=== PATIENT | male | born 2005 | race Caucasian/White ===

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

== ENCOUNTER 2024-04-15 12:25 | Emergency (ER) | payer BC, SELFPAY ==
[2024-04-15 12:31] VITALS: BP 115/91; PULSE 67; TEMP 36.7; O2SAT 100; BMI 20.4
--- NOTE | 2024-04-15 13:05 | XR_ITS ---
[facility] [id number] Patient Name: JOCE HYATT MRN: [id number] date: 2005 Sex: M Assigned Patient Location: ER Current Patient Location: ER Accession/Order Number: [id number] Exam Date: 04/15/2024 13:20 Report Date: 04/15/2024 14:06 At the request of: LOKESH LUCAS Procedure: XR wrist AGUS min 3V EXAMINATION: XR wrist AGUS min 3V HISTORY: wrist pain COMPARISON: No relevant comparison available. FINDINGS: RIGHT FINDINGS: BONES: Normal. No significant arthropathy or acute abnormality. SOFT TISSUES: Negative. No visible soft tissue swelling. OTHER: Negative. LEFT FINDINGS: BONES: Normal. No significant arthropathy or acute abnormality. SOFT TISSUES: Negative. No visible soft tissue swelling. OTHER: Negative. XR/XR wrist AGUS min 3V IMPRESSION: RIGHT CONCLUSION: Normal LEFT CONCLUSION: Normal Electronically authenticated by: GIOVANNA COVINGTON Date: 04/15/2024 14:06
--- NOTE | 2024-04-15 14:35 | ED.GENADUL1 ---
HPI HPI - General Adult General Chief complaint: Extremity Injury, Upper Stated complaint: WRIST PAIN Time Seen by Provider: 04/15/24 13:04 Source: patient Mode of arrival: walk-in Limitations: no limitations History of Present Illness HPI narrative: Patient is an 18-year-old male who presents to the emergency department for bilateral wrist pain, left worse than right. He is left-hand dominant. 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 He states today the pain was significant, unrelieved with Tylenol and Motrin. He has not had any swelling, redness or warmth to the joints. No direct injury or falls. Related Data Previous Rx's ?Medication ?Instructions ?Recorded ketorolac 10 mg tablet 10 mg PO TID PRN pain #10 tabs 04/15/24 prednisone 20 mg tablet See Rx Instructions .Route 04/15/24 .COMPLEX #12 tabs Allergies Allergy/AdvReac Type Severity Reaction Status Date / Time amoxicillin Allergy Unknown Verified 08/01/23 15:30 Opioid HPI Opioid Management Most Recent Opioid Data: No Data to Display Review of Systems ROS Constitutional Denies: fever or chills Ears, nose, mouth, and throat Denies: throat pain or nasal congestion Respiratory Denies: shortness of breath Gastrointestinal Denies: nausea or vomiting Musculoskeletal Reports: extremity pain and joint pain; Denies: back pain or neck pain Integumentary/Breast Denies: rash Neurological Denies: headache Hematologic/Lymphatic Denies: easy bruising or easy bleeding Exam Narrative Exam Narrative: Gen.: Awake, alert, in no distress Head: Normocephalic, atraumatic ENT: Moist mucous membranes Respiratory: No respiratory distress Extremities: Right wrist with no significant tenderness, normal range of motion, no bony point tenderness or obvious deformity. Bilateral 2+ radial pulses. Left wrist is diffusely tender over the left distal ulna, no appreciable swelling, ecchymosis or warmth. Limited flexion and extension of the left wrist due to pain Psych: Normal mood and affect Neuro: No focal neuro deficit Skin: Warm, dry, intact Constitutional Vital Signs, click to edit/add: Last Vital Signs Temp 98.0 F 04/15/24 12:31 Pulse 67 04/15/24 12:31 Resp 18 04/15/24 12:31 BP 115/91 04/15/24 12:31 Pulse Ox 100 04/15/24 12:31 O2 Del Method Room Air 04/15/24 12:31 Course Vital Signs Vital signs: Vital Signs Temperature 98.0 F 04/15/24 12:31 Pulse Rate 67 04/15/24 12:31 Respiratory Rate 18 04/15/24 12:31 Blood Pressure 115/91 04/15/24 12:31 Pulse Oximetry 100 04/15/24 12:31 Oxygen Delivery Method Room Air 04/15/24 12:31 Temperature 98.0 F 04/15/24 12:31 Pulse Rate 67 04/15/24 12:31 Respiratory Rate 18 04/15/24 12:31 Blood Pressure 115/91 04/15/24 12:31 Pulse Oximetry 100 04/15/24 12:31 Oxygen Delivery Method Room Air 04/15/24 12:31 Medical Decision Making MDM Narrative Medical decision making narrative: X-rays performed from the lobby with no evidence of bony abnormality. Patient treated for tendinitis with NSAIDs and steroid taper. Bilateral Vlad wrap supplied. Patient is neurovascularly intact discharge. Rest, ice, elevate. Work note provided. Follow-up PCP and return to the ER if symptoms change or worsen Medical Records Medical records reviewed: Yes I reviewed the patient's medical records Imaging Data xr wrist: Attestation: I have reviewed the pertinent imaging results. Radiologist's impression: ITS Impressions Wrist X-Ray 04/15/24 13:05 IMPRESSION: RIGHT CONCLUSION: Normal LEFT CONCLUSION: Normal Electronically authenticated by: GIOVANNA COVINGTON Date: 04/15/2024 14:06 Discharge Plan Discharge Stand Alone Forms: Portal Instructions Chief Complaint: Extremity Injury, Upper Clinical Impression: Tendonitis of both wrists Patient Disposition: Home, Self-Care Time of Disposition Decision: 14:33 Condition: Good Prescriptions / Home Meds: New ketorolac 10 mg tablet 10 mg PO TID PRN (Reason: pain) Qty: 10 0RF prednisone 20 mg tablet See Rx Instructions .ROUTE .COMPLEX Qty: 12 0RF Rx Instructions: 3 tabs daily for 2 days, then 2 tabs daily for 2 days, then 1 tab daily for 2 days Print Language: Divehi Instructions: Tendinitis (ED) Referrals: Physician,Non-Staff, MD [Primary Care Provider] - 1 week
== END 2024-04-15 14:46 | disposition home or self-care (01) ==
PROVIDERS: Emergency Provider Emergency Medicine
DX: M77.8 Other enthesopathies, not elsewhere classified (principal)
CPT/HCPCS: 73110; 99283

== ENCOUNTER 2025-01-22 17:32 | Emergency (ER) | payer SELFPAY ==
[2025-01-22 17:38] VITALS: BP 144/76; PULSE 62; TEMP 36.9; O2SAT 100; BMI 20.2
--- OUTSIDE RECORDS SUMMARY | 2025-01-22 17:46 | XMS_ITS | CCD ---
Author Organization [facility]ini[facility] Care Team Providers Care Train Master Name Role Phone REQUEST, DR NONE LISTED Primary Care Unavaila MY Kim Consulting Unavailable CHRISTIANO RODRIGUEZ Admitting Unavailable CHRISTIANO RODRIGUEZ Attending Unavailable DR LES MURILLO Primary Care Unavailable EMELY PAL Consulting Unavailable EMELY PAL Attending Unavailable EMELY PAL Admitting Unavailable Allergies Allergy Classification Reported Allergen(s) Allergy Type Date of Onset Reaction(s) Facility (1 source) Amoxicillin Drug Allergy 09-28-2020 [facility] Repository Medications Current Medications Medication Drug Class(es) Dates Sig (Normalized) Sig (Original) dextromethorphan hydrobromide 15 mg / guaiFENesin 400 mg / pseudoephedrine hydrochloride 60 mg oral tablet (1 source) alpha-Adrenergic Agonist, Uncompetitive Q-ibsqfs-X-aspartat e Receptor Antagonist, Sigma-1 Agonist Start: 08-22-2024 take 4 tablets by mouth every twenty-four hours Pseudoephedrine -Dm-Guaifenesin (Capmist Dm) 60-15-400 mg tablet Active 1 TAB PO EVERY 4-6 HOURS August 22, 2024 12:00am do not exceed 4 doses per 24 hrs Problems Problem Classification Problem Date Documented Da te Episodic/Chronic Headache; including migraine (4 sources) Headache; including migraine; Translations: [HEADACHE UNSPECIFIED] Onset: 10-05-2021 Mood disorders (1 source) Depressive disorder; Translations: [Depression] 10-16-2023 Chronic Other upper respiratory infections (6 sources) Acute upper respiratory infection, unspecified; Translations: [Acute pharyngitis, unspecified] Onset: 07-26-2021 Episodic Poisoning by other medications and drugs (1 source) Poisoning by unspecified drugs, medicaments and biological substances, accidental (unintentional), initial encounter; Translations: [Drug overdose] 10-16-2023 Episodic Substance-related disorders (1 source) Cannabis abuse; Translations: [Cannabis abuse, uncomplicated] 10-16-2023 Chronic Suicide and intentional self-inflicted injury (1 source) Suicidal thoughts; Translations: [Suicidal ideations] 10-16-2023 Episodic Unclassified (1 source) COUGH, UNSPECIFIED; Translations: [COUGH, UNSPECIFIED] Onset: 10-09-2021 Unclassified (1 source) CONTACT W/AND (SUSP) EXPOS COVID-19; Translations: [CONTACT W/AND (SUSP) EXPOS COVID-19] Onset: 07-28-2021 Viral infection (1 source) COVID-19; Translations: [COVID-19] Onset: 10-09-2021 Results Test Name Value Interpretation Reference Range Facility No Panel InformationOrdered By: Marilyn Zuñiga on 08-22-2024 Quick Strep (POC) [facility] CULTURE THROATon 10-05-2021 CULTURE THROAT Culture Observations: NORMAL RESPIRATORY CRISTIANE. Normal [facility] Comment on above: Performed By: #### S SCRN, THRTCX #### [facility] [address] [place] [address] Dr. Yakov Church Covid-19 PCR (CVDTBH)on SARS-CoV-2 (COVID-19) RNA FEDERICO+probe Ql (Unsp spec) Detected Critically abnormal NOT DETECTED [facility] Comment on above: Result Comment: This test is not yet approved or cleared by the [place] Food and Drug Administration (FDA). This test was developed by [employer], [place], [place]. The performance characteristics of this test were validated by [facility]. The results are not intended to be used as the sole means for clinical diagnosis or patient management decisions. [facility] is authorized under Clinical Laboratory Improvement Amendments (CLIA) to perform high- complexity testing. This test is not yet approved or cleared by the [place] FDA. When there are no FDA-approved or cleared tests available, and other criteria are met, FDA can make tests available under an emergency access mechanism called an Emergency Use Authorization (EUA). The EUA for this test is supported by the Director Of Database Marketing of Health and Human Service's declaration that circumstances exist to justify the emergency use of in vitro diagnostics for the detection and/or diagnosis of the virus that causes COVID-19. This EUA will remain in effect for the duration of the COVID-19 declaration justifying emergency of IVDs, unless it is terminated or revoked by the FDA (after which the test may no longer be used). Performed By: #### C VDTBH #### [facility] [address] [place] [address] Dr. Yakov Church STREPT SCREENon 10-05-2021 STREP SCREEN A Negative Normal NEGATIVE [facility] Comment on above: Performed By: #### S SCRN, THRTCX #### [facility] [address] [place] [address] Dr. Yakov Church CULTURE THROATon 07-26-2021 CULTURE THROAT Culture Observations: NORMAL RESPIRATORY CRISTIANE. Normal [facility] Comment on above: Performed By: #### T HRTCX, SSCRN #### [facility] [address] [place] [address] Dr. Yakov Church [facility] 07[facility]06 SARS-CoV-2 (COVID-19) RNA FEDERICO+probe Ql (Unsp spec) Not detected Normal NOT DETECTED [facility] Comment on above: Result Comment: This test is not yet approved or cleared by the [place] FDA. When there are no FDA-approved or cleared tests available, and other criteria are met, FDA can make tests available under an emergency access mechanism called an Emergency Use Authorization (EUA). The EUA for this test is supported by the Director Of Database Marketing of Health and Human Service's (HHS's) declaration that circumstances exist to justify the emergency use of in vitro diagnostics for the detection and/or diagnosis of the virus that causes COVID-19. This EUA will remain in effect (meaning this test can be used) for the duration of the COVID-19 declaration justifying emergency of IVDs, unless it is terminated or revoked by FDA (after which the test may no longer be used). When diagnostic testing is negative, the possibility of a false negative should be considered in the context of a patient's recent exposures and the presence of clinical signs and symptoms consistent with SARS-CoV-2. Performed By: #### C VDTBH #### [facility] [address] [place] [address] Dr. Yakov Church STREPT SCREENon 07-26-2021 STREP SCREEN A Negative Normal NEGATIVE [facility] Comment on above: Performed By: #### T HRTCX, SSCRN #### [facility] [address] [place] [address] Dr. Yakov Church SYMPTOMATIC COVID-19 ANTIGEN on 07-26-2021 EUA Statement SEE BELOW Normal [facility] Comment on above: Result Comment: This test has not been FDA cleared or approved, but has been authorized by the FDA under an Emergency Use Authorization (EUA) for use by authorized laboratories certified under CLIA that meet the requirements to perform moderate or high complexity testing. This test has been authorized only for the detection of proteins from SARS-CoV-2, not for any other viruses or pathogens. The emergency use of this test is authorized for the duration of the declaration that circumstances exist justifying the authorization of emergency use of in vitro diagnostic tests for detection and/or diagnosis of Covid-19 under section 564(b)(1) of the Act, 21 U.S.C. 360bbb-3(b)(1), unless the declaration is terminated or authorization is revoked sooner. Performed By: #### C VDAGS #### [facility] [address] [place] [address] Dr. Yakov Church SARS-CoV-2 (COVID-19) RNA FEDERICO+probe Ql (Unsp spec) Negative Normal NEGATIVE [facility] Comment on above: Result Comment: CONF IRMATION BY PCR PENDING PER CDC GUIDELINES/ SYMPTOMATIC PATIENT. Performed By: #### C VDAGS #### [facility] [address] [place] [address] Dr. Yakov Church COVID-19 Antigenon 1 COVID-19 Antigen Healthcare Worker?: N Sid Reference -- Sid Reference Negative SARS-CoV+SARS-CoV-2 (COVID-19) Ag [Presence] in Respiratory specimen by Rapid immunoassay Negative for SARS Antigen by SIN COVID19 Blank Space Sid Disclaimer Negative results, from patients with symptom Sid Disclaimer onset beyond five days, should be treated as Sid Disclaimer presumptive and confirmation with a molecular Sid Disclaimer assay, if necessary, for patient management, Sid Disclaimer may be performed. Negative results do not rule Sid Disclaimer out COVID-19 and should not be used as the sole Sid Disclaimer basis for treatment or patient management Sid Disclaimer decisions, including infection control decisions. Sid Disclaimer Negative results should be considered in the Sid Disclaimer context of a patient's recent exposures, history Sid Disclaimer and the presence of clinical signs and symptoms Sid Disclaimer consistent with COVID-19. COVID19 Blank Space Sid Disclaimer The Sid SARS Antigen SIN does not differentiate Sid Disclaimer between SARS-CoV and SARS-CoV-2. COVID19 Blank Space Sid Disclaimer This test was developed and its performance Sid Disclaimer characteristic determined by [employer] and Sid Disclaimer validated at [facility]. This Sid Disclaimer test has not been FDA cleared or approved. This Sid Disclaimer test has been authorized by FDA under an Emergency Use Sid Disclaimer Authorization (EUA). This test has been validated Sid Disclaimer in accordance with the FDA's Guidance Document (Policy Sid Disclaimer for Diagnostics Testing in Laboratories Certified to Sid Disclaimer Perform High Complexity Testing under CLIA prior to Sid Disclaimer Emergency Use Authorization for Coronavirus Sid Disclaimer isease-2019 during the Public Health Emergency) Sid Disclaimer issued on February 04, 2020. This test is only authorized Sid Disclaimer for the duration of time the declaration that Sid Disclaimer circumstances exist justifying the authorization of Sid Disclaimer the emergency use of in vitro diagnostic tests for Sid Disclaimer detection of SARS-CoV-2 virus and/or diagnosis of Sid Disclaimer COVID-19 infection under section 564(b)(1) of the Sid Disclaimer Act, 21 U.S.C. 360bbb-3(b)(1), unless the Sid Disclaimer authorization is terminated or revoked sooner. PERFORMED BY: [place] [address] PATHOLOGIST DROP HAMMER PILE DRIVER OPERATOR ALEKS RAMAN M.D. Normal [facility] Comment on above: Performed By: #### S OFIANEG, COVID-19 SID #### [address] Complete Blood Count Auto Di ffon 02-26-2021 Basophils (Bld) [#/Vol] 0.0 10*3/uL Normal 0.0-0.1 [facility] Comment on above: Result Comment: PERF ORMED BY: [place] [address] PATHOLOGIST DROP HAMMER PILE DRIVER OPERATOR ALEKS RAMAN M.D. Performed By: #### C MP, ETOH, CBC #### [place] [address] [place] Basophils/100 WBC (Bld) 0.6 % Normal . [facility] Comment on above: Performed By: #### C MP, ETOH, CBC #### [facility] [address] [place] [address] [place] Eosinophils (Bld) [#/Vol] 0.0 10*3/uL Normal 0.0-0.7 [facility] Comment on above: Performed By: #### C MP, ETOH, CBC #### [facility] [address] [place] [address] Eosinophils/100 WBC (Bld) 0.4 % Normal . [facility] Comment on above: Performed By: #### C MP, ETOH, CBC #### [facility] [address] Erythrocyte distribution width (RBC) [Ratio] 13.3 % Normal 12.0-14.8 [facility] Comment on above: Performed By: #### C MP, ETOH, CBC #### [address] Hematocrit (Bld) [Volume fraction] 44.9 % Normal 37.0-49.0 [facility] Comment on above: Performed By: #### C MP, ETOH, CBC #### [address] Hemoglobin (Bld) [Mass/Vol] 15.2 g/dL Normal 13.0-16.0 [facility] Comment on above: Performed By: #### C MP, ETOH, CBC #### [address] Lymphocytes (Bld) [#/Vol] 1.5 10*3/uL Normal 1.20-4.8 [facility] Comment on above: Performed By: #### C MP, ETOH, CBC #### [address] Lymphocytes/100 WBC (Bld) 26.9 % Normal . [facility] Comment on above: Performed By: #### C MP, ETOH, CBC #### [address] MCH (RBC) [Entitic mass] 30.5 pg Normal 25.0-35.0 [facility] Comment on above: Performed By: #### C MP, ETOH, CBC #### [address] MCV (RBC) [Entitic vol] 89.7 fL Normal 78-98 [facility] Comment on above: Performed By: #### C MP, ETOH, CBC #### [address] Mean Corpuscular HGB Conc 34.0 g/dL Normal 31.0-37.0 [facility] Comment on above: Performed By: #### C MP, ETOH, CBC #### [facility] [address] [place] [address] [place] Monocytes (Bld) [#/Vol] 0.5 10*3/uL Normal 0.1-1.00 [facility] Comment on above: Performed By: #### C MP, ETOH, CBC #### [facility] [address] [place] [address] [place] Monocytes/100 WBC (Bld) 8.1 % Normal . [facility] Comment on above: Performed By: #### C MP, ETOH, CBC #### [facility] [address] [place] [address] [place] Neutrophils (Bld) [#/Vol] 3.6 10*3/uL Normal 1.2-7.7 [facility] Comment on above: Performed By: #### C MP, ETOH, CBC #### [facility] [address] [place] [address] [place] Neutrophils/100 WBC (Bld) 64.0 % Normal . [facility] Comment on above: Performed By: #### C MP, ETOH, CBC #### [facility] [address] [place] [address] [place] Nucleated RBC/100 WBC (Bld) [Ratio] 0.1 % Normal 0-0.5 [facility] Comment on above: Performed By: #### C MP, ETOH, CBC #### [facility] [address] [place] [address] [place] Platelet mean volume (Bld) [Entitic vol] 7.7 fL Normal 6.6-10.1 [facility] Comment on above: Performed By: #### C MP, ETOH, CBC #### [facility] [address] [place] [address] [place] Platelets (Bld) [#/Vol] 197 10*3/uL Normal 150-450 [facility] Comment on above: Performed By: #### C MP, ETOH, CBC #### [facility] [address] [place] [address] [place] RBC (Bld) [#/Vol] 5.00 10*6/uL Normal 4.50-5.30 [facility] Comment on above: Performed By: #### C MP, ETOH, CBC #### [facility] [address] [place] [address] WBC (Bld) [#/Vol] 5.6 10*3/uL Normal 4.5-13.5 [facility] Comment on above: Performed By: #### C MP, ETOH, CBC #### [address] Comprehensive Metabolic Pane tommie 02-26-2021 Albumin [Mass/Vol] 4.3 g/dL Normal 3.2-5.5 [facility] Comment on above: Performed By: #### C MP, ETOH, CBC #### [address] Albumin/Globulin [Mass ratio] 1.7 {ratio} Normal [facility] Comment on above: Performed By: #### C MP, ETOH, CBC #### [address] ALP [Catalytic activity/Vol] 67 U/L Normal 67-372 [facility] Comment on above: Performed By: #### C MP, ETOH, CBC #### [address] ALT [Catalytic activity/Vol] 16 U/L Normal 10-60 [facility] Comment on above: Performed By: #### C MP, ETOH, CBC #### [address] AST [Catalytic activity/Vol] 19 U/L Normal 10-42 [facility] Comment on above: Performed By: #### C MP, ETOH, CBC #### [facility] [address] [place] [address] Bilirubin [Mass/Vol] 0.7 mg/dL Normal 0.3-1.2 [facility] Comment on above: Performed By: #### C MP, ETOH, CBC #### [facility] [address] [place] [address] [place] Calcium [Mass/Vol] 9.1 mg/dL Normal 8.2-10.2 [facility] Comment on above: Performed By: #### C MP, ETOH, CBC #### [facility] [address] Chloride [Moles/Vol] 107 mmol/L Normal 95-114 [facility] Comment on above: Performed By: #### C MP, ETOH, CBC #### [facility] [address] CO2 [Moles/Vol] 24.9 mmol/L Normal 22.0-30.0 [facility] Comment on above: Performed By: #### C MP, ETOH, CBC #### [address] Creatinine [Mass/Vol] 1.04 mg/dL Normal 0.64-1.27 [facility] Comment on above: Performed By: #### C MP, ETOH, CBC #### [address] Creatinine Clr Calc Pharmacy 99.36 [facility] Comment on above: Result Comment: PERF ORMED BY: [place] [address] PATHOLOGIST DROP HAMMER PILE DRIVER OPERATOR ALEKS RAMAN M.D. Performed By: #### C MP, ETOH, CBC #### [address] Globulin (S) [Mass/Vol] 2.6 g/dL Normal [facility] Comment on above: Performed By: #### C MP, ETOH, CBC #### [address] Glucose [Mass/Vol] 98 mg/dL Normal 70-100 [facility] Comment on above: Result Comment: [place] Glucose Reference Range is dependent on time and content of last meal. Glucose of more than 200 mg/dL in a nonstressed, ambulatory subject supports the diagnosis of Diabetes Mellitus. ADA recommended reference range Performed By: #### C MP, ETOH, CBC #### [address] [place] [address] [place] Potassium [Moles/Vol] 3.7 mmol/L Normal 3.5-5.1 [facility] Comment on above: Performed By: #### C MP, ETOH, CBC #### [facility] [address] [place] [address] [place] Protein [Mass/Vol] 6.9 g/dL Normal 6.1-7.9 [facility] Comment on above: Performed By: #### C MP, ETOH, CBC #### [facility] [address] [place] [address] [place] Sodium [Moles/Vol] 140 mmol/L Normal 138-145 [facility] Comment on above: Performed By: #### C MP, ETOH, CBC #### [address] Urea nitrogen [Mass/Vol] 6 mg/dL Low 9- [facility] Comment on above: Performed By: #### C MP, ETOH, CBC #### [place] [address] [place] Dipstick and Microscopicon 0 02-26-2021 Appearance (U) Clear Normal Clear [facility] Comment on above: Order Comment: Name Collection Type:: Clean-Voided Midstream Performed By: #### A DDONUAPLUS, URDS #### [place] [address] [place] Bacteria,Urine None Seen Normal None Seen [facility] Comment on above: Order Comment: Name Collection Type:: Clean-Voided Midstream Performed By: #### A DDONUAPLUS, URDS #### [place] [address] [place] Bilirubin,Urine Negative Normal Negative [facility] Comment on above: Order Comment: Name Collection Type:: Clean-Voided Midstream Performed By: #### A DDONUAPLUS, URDS #### [place] [address] [place] Color (U) Dark Yellow Critically abnormal Yellow [facility] Comment on above: Order Comment: Name Collection Type:: Clean-Voided Midstream Performed By: #### A DDONUAPLUS, URDS #### [facility] [address] Glucose Ql (U) Normal Normal Normal [facility] Comment on above: Order Comment: Name Collection Type:: Clean-Voided Midstream Performed By: #### A DDONUAPLUS, URDS #### [facility] [address] [place] [address] [place] Hyaline Casts,Urine 0-8 Normal 0-8 [facility] Comment on above: Order Comment: Name Collection Type:: Clean-Voided Midstream Result Comment: PERF ORMED BY: [place] [address] PATHOLOGIST DR[employer] HAMMER PILE DRIVER OPERATOR ALEKS RAMAN M.D. Performed By: #### A DDONUAPLUS, URDS #### [facility] [address] [place] [address] Ketones Ql (U) Trace High Negative [facility] Comment on above: Order Comment: Name Collection Type:: Clean-Voided Midstream Performed By: #### A DDONUAPLUS, URDS #### [facility] [address] [place] [address] Leukocyte esterase Test strip Ql (U) Negative Normal Negative [facility] Comment on above: Order Comment: Name Collection Type:: Clean-Voided Midstream Performed By: #### A DDONUAPLUS, URDS #### [facility] [address] [place] [address] [place] Nitrite,Urine Negative Normal Negative [facility] Comment on above: Order Comment: Name Collection Type:: Clean-Voided Midstream Performed By: #### A DDONUAPLUS, URDS #### [facility] [address] [place] [address] Occult Blood,Urine Negative Normal Negative [facility] Comment on above: Order Comment: Name Collection Type:: Clean-Voided Midstream Result Comment: PERF ORMED BY: [place] [address] PATHOLOGIST DROP HAMMER PILE DRIVER OPERATOR ALEKS RAMAN M.D. Performed By: #### A DDONUAPLUS, URDS #### [facility] [address] [place] [address] pH (U) 6.5 [pH] Normal 5.0-9.0 [facility] Comment on above: Order Comment: Name Collection Type:: Clean-Voided Midstream Performed By: #### A DDONUAPLUS, URDS #### [facility] [address] [place] [address] [place] Protein,Urine Trace High Negative [facility] Comment on above: Order Comment: Name Collection Type:: Clean-Voided Midstream Performed By: #### A DDONUAPLUS, URDS #### [address] RBC,Urine 5-9 High 0-4 [facility] Comment on above: Order Comment: Name Collection Type:: Clean-Voided Midstream Performed By: #### A DDONUAPLUS, URDS #### [address] [place],Urine 1.036 High 1.001-1.030 [facility] Comment on above: Order Comment: Name Collection Type:: Clean-Voided Midstream Performed By: #### A DDONUAPLUS, URDS #### [address] Squamous Epithelial Cell,Urine 1-2 Normal 0-2 [facility] Comment on above: Order Comment: Name Collection Type:: Clean-Voided Midstream Performed By: #### A DDONUAPLUS, URDS #### [address] Uric Acid Crystals,Urine 1+ Normal [facility] Comment on above: Order Comment: Name Collection Type:: Clean-Voided Midstream Performed By: #### A DDONUAPLUS, URDS #### [address] Urobilinogen,Urine Normal Normal Normal [facility] Comment on above: Order Comment: Name Collection Type:: Clean-Voided Midstream Performed By: #### A DDONUAPLUS, URDS #### [facility] [address] [place] [address] WBC,Urine 1-2 Normal 0-4 [facility] Comment on above: Order Comment: Name Collection Type:: Clean-Voided Midstream Performed By: #### A DDONUAPLUS, URDS #### [place] [address] [place] Drug Screen,Urineon 02-27-20 21 Amphetamine Screen,Urine Negative Normal Negative [facility] Comment on above: Performed By: #### A DDONUAPLUS, URDS #### [place] [address] [place] Barbiturate Screen,Urine Negative Normal Negative [facility] Comment on above: Performed By: #### A DDONUAPLUS, URDS #### [place] [address] [place] Benzodiazepines Screen,Urine Negative Normal Negative [facility] Comment on above: Performed By: #### A DDONUAPLUS, URDS #### [address] Cannabinoid Screen,Urine Positive High Negative [facility] Comment on above: Result Comment: Thes e are unconfirmed results and should not be used for legal purposes. Drug Cut-Off Concentration: AMPH 1000 ng/mL DANYELLE 200 ng/mL CHARLEY 200 ng/mL COCM 300 ng/mL OP 300 ng/mL PCP 25 ng/mL THC 20 ng/mL PERFORMED BY: [place] [address] PATHOLOGIST DROP HAMMER PILE DRIVER OPERATOR ALEKS RAMAN M.D. Performed By: #### A DDONUAPLUS, URDS #### [address] Cocaine Screen,Urine Negative Normal Negative [facility] Comment on above: Performed By: #### A DDONUAPLUS, URDS #### [address] Opiate Screen,Urine Negative Normal Negative [facility] Comment on above: Performed By: #### A DDONUAPLUS, URDS #### [address] Phencyclidine Screen,Urine Negative Normal Negative [facility] Comment on above: Performed By: #### A DDONUAPLUS, URDS #### [address] Ethyl Alcohol Profileon 02-03 Ethanol [Mass/Vol] mg/dL Normal [facility] Comment on above: Performed By: #### C MP, ETOH, CBC #### [address] Percent Ethanol Not performed Normal [facility] Comment on above: Result Comment: PERF ORMED BY: [place] [address] PATHOLOGIST DROP HAMMER PILE DRIVER OPERATOR ALEKS RAMAN M.D. Performed By: #### C MP, ETOH, CBC #### [address] Sid Ag Negativeon 02-27-20 Sid Ag Negative Negative Normal Negative [facility] Comment on above: Result Comment: This is a duplicate Sid SARS Antigen (SIN) result to be used for statistical tracking purpose only. PERFORMED BY: [place] [address] PATHOLOGIST DROP HAMMER PILE DRIVER OPERATOR ALEKS RAMAN M.D. Performed By: #### S OFMANPREET, COVID-19 SID #### [address] Vital Signs Date Time Vital Sign Value Performing Clinician Faci lity 08-22-2024 14:31040 Body height 170.18 cm [facility] 08-22-2024 14:310400 Body mass index (BMI) [Percentile] Per age and sex 21.4 % [facility] 08-22-2024 14:310400 Body mass index (BMI) [Ratio] 20.8 kg/m2 [facility] 08-22-2024 14:310400 Body temperature 99.9 [degF] [facility] 08-22-2024 14:31-0400 Body weight 60.32 kg [facility] 08-22-2024 14:31-0400 Diastolic blood pressure 70 mm[Hg] [facility] 08-22-2024 14:31-0400 Heart rate 67 /min [facility] 08-22-2024 14:31-0400 Respiratory rate 18 /min [facility] 08-22-2024 14:31-0400 SaO2% (BldA) [Mass fraction] 98 % [facility] 08-22-2024 14:31-0400 Systolic blood pressure 119 mm[Hg] [facility] Encounters Encounter Date Encounter Type Care Provider Facility Start: 08-22-2024 End: 08-22-2024 ambulatory [facility] Work Phone: Start: 08-22-2024 End: 08-22-2024 Patient encounter procedure [facility] Work Phone: Start: 10-05-2021 End: 10-05-2021 ambulatory NONE LISTED REQUEST Facility:H1 Start: 07-26-2021 End: 07-26-[address] [facility] Facility: Procedures Date Procedure Procedure Detail Performing Clinician Start: 08-22-2024 Quick Strep (POC) Payers Date Payer Category Payer Unknown [id number] 1985 Unknown [id number] 1959 Unknown [id number] Self-pay Self Pay [id number] Unknown [facility] [id number] Social History Date Type Detail Facility Start: 02-27-2021 Tobacco smoking stat us ILIS Never smoked tobacco (finding) [facility] Start: 2005 Sex Assigned At Male F [facility] Evaluation note Note Date & Type Note Facility Evaluation note No assessment information availa pily [facility] Work Phone: Summary Purpose Family History No Family History Records FoundNo Family History Records Found Advance Directives Advance Directive Response Recorded Date/ Time Advance Directives No September 9:16am Chief Complaint and Reason for Visit Chief Complaint Sore throat Additional Source Comments (unrecognized sect ion and content) No Status Records FoundNo Status Records Found INFORMATION SOURCE (unrecogn ized section and content) DATE CREATED AUTHOR 10/09/2021 [facility] DATE CREATED AUTHOR AUTHOR'S ORGANIZ ATION 12/17/2021 [facility] Care Teams (unrecognized sec tion and content) Team Status: Active Member Role Status Dates PHYSICIAN NO FAMILY Primary Care Provider Active Team Status: Inactive Member Role Status Dates PHYSICIAN NO FAMILY Primary Care Provider Active Start: August 22, 2024 End: August 22, 2024 Marilyn Zuñiga APRN Attending Provider Active Start: August 22, 2024 End: August 22, 2024 Goals (unrecognized section and content) Goals may be documented in a n alternate section FOR RECORDS PERTAINING TO PATIENTS WHO ARE OR HAVE BEEN ENROLLED IN A CHEMICAL DEPENDENCY/SUBSTANCEABUSE PROGRAM, SOME INFORMATION MAY BE OMITTED. This clinical summary was aggregated from multiple sources. Caution should be exercised in using it in the provision of clinical care. This summary normalizes information from multiple sources, and as a consequence, information in this document may materially change the coding, format and clinical context of patient data. In addition, data may be omitted in some cases. CLINICAL DECISIONS SHOULD BE BASED ON THE PRIMARY CLINICAL RECORDS. [facility] [employer] provides no warranty or guarantee of the accuracy or completeness of information in this document.
[2025-01-22] MEDS: ONDANSETRON 4 MG RAPDIS TABLET SL (17:47)
[2025-01-22] MEDS: IBUPROFEN 600 MG TABLET PO (17:47)
--- NOTE | 2025-01-22 17:51 | ED.GENADUL1 ---
HPI HPI - General Adult General Chief complaint: Ear Stated complaint: migraine Time Seen by Provider: 01/22/25 17:37 Source: patient Mode of arrival: walk-in Limitations: no limitations History of Present Illness HPI narrative: 19-year-old male presents emergency room chief complaint of right ear pain. 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 He is here for evaluation. He states he wears earplugs daily. Patient denies fevers or chills. Denies worst headache of his life sudden onset or thunderclap sensation. Vital signs are stable. He denies taking any medication prior to coming for his headache. Related Data Previous Rx's ?Medication ?Instructions ?Recorded carbamide peroxide 6.5 % ear drops 5 drp otic (ear) BID 4 days #15 mL 01/22/25 (Ear Wax Removal Drops) Allergies Allergy/AdvReac Type Severity Reaction Status Date / Time amoxicillin Allergy Unknown Verified 08/01/23 15:30 Opioid HPI Opioid Management Most Recent Opioid Data: No Data to Display Review of Systems ROS Narrative All Systems are negative except as noted/marked.All systems reviewed and otherwise negative Exam Narrative Exam Narrative: Nurses note and vital signs reviewed and patient is not hypoxic. General: The patient appears well and in no apparent distress. Patient is resting comfortably on cart. Skin: Warm, dry, no pallor noted. There is no rash noted. Head: Normocephalic, atraumatic Eye: Normal conjunctiva, no drainage, EOMI. PERRL Ears, Nose, Mouth, and Throat: oral mucosa is moist. Nares patent. Mouth without vesicles. Ear canals patent. Tm's without Erythema Cardiovascular: Regular Rate and Rhythm Respiratory: Patient is in no distress, no accessory muscle use, lungs are clear to auscultation, no wheezing, rales or rhonchi Back: non-tender, no CVA tenderness bilaterally to percussion. GI: Normal bowel sounds, no tenderness to palpation, no masses appreciated. No rebound, guarding, or rigidity noted. Musculoskeletal: The patient has no evidence of calf tenderness, no pitting edema, symmetrical pulses noted bilaterally Neurological: A&O x4, normal speech Psychiatric: Cooperative Constitutional Vital Signs, click to edit/add: Last Vital Signs Temp 98.4 F 01/22/25 17:38 Pulse 62 01/22/25 17:38 Resp 18 01/22/25 17:38 BP 144/76 H 01/22/25 17:38 Pulse Ox 100 01/22/25 17:38 O2 Del Method Room Air 01/22/25 17:38 Course Vital Signs Vital signs: Vital Signs Temperature 98.4 F 01/22/25 17:38 Pulse Rate 62 01/22/25 17:38 Respiratory Rate 18 01/22/25 17:38 Blood Pressure 144/76 H 01/22/25 17:38 Pulse Oximetry 100 01/22/25 17:38 Oxygen Delivery Method Room Air 01/22/25 17:38 Temperature 98.4 F 01/22/25 17:38 Pulse Rate 62 01/22/25 17:38 Respiratory Rate 18 01/22/25 17:38 Blood Pressure 144/76 H 01/22/25 17:38 Pulse Oximetry 100 01/22/25 17:38 Oxygen Delivery Method Room Air 01/22/25 17:38 Medical Decision Making [facility] Narrative Medical decision making narrative: 19-year-old male presents emergency room chief complaint of right ear pain. 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 He is here for evaluation. He states he wears earplugs daily. Patient denies fevers or chills. Denies worst headache of his life sudden onset or thunderclap sensation. Vital signs are stable. He denies taking any medication prior to coming for his headache. , Patient has cerumen noted bilaterally. I will write him a prescription for Debrox to help with removing cerumen from his canal. Patient was medicated here with Zofran and Motrin. He is able to be discharged home and follow-up primary care physician. Differential Diagnosis Differential Diagnosis: cerumen Impaction, otitis media, headache Medical Records Medical records reviewed: Yes I reviewed the patient's medical records Discharge Plan Discharge Chief Complaint: Ear Clinical Impression: Cerumen impaction, Headache Patient Disposition: Home, Self-Care Time of Disposition Decision: 17:48 Condition: Good Prescriptions / Home Meds: New Ear Wax Removal Drops 6.5 % drops 5 drp otic (ear) BID 4 Days Qty: 15 0RF Print Language: Austrian Instructions: Carbamide Peroxide (Into the ear), Acute Headache (DC) Referrals: Physician,Non-Staff, MD [Primary Care Provider] - 1 week
== END 2025-01-22 18:00 | disposition home or self-care (01) ==
PROVIDERS: Emergency Provider Emergency Medicine
DX: H61.23 Impacted cerumen, bilateral (principal); R51.9 Headache, unspecified
CPT/HCPCS: 99283; Q0162

== ENCOUNTER 2025-04-13 11:19 | Emergency (ER) | payer SELFPAY ==
--- OUTSIDE RECORDS SUMMARY | 2023-08-16 10:12 | XMS_ITS | Continuity of Care Document ---
Author Organization [facility] Address [address] [place] [address] Phone Care Team Providers Care Business Development Associate Name Role Phone Viscyuri AVILES DO, [place] Unavailable Unavailable Allergies, Adverse Reactions, Alerts Substance Reaction Status Criticality amoxicillin rash Active No Information Problems Condition Type Effective Dates (start - stop) Clini coty Status Comments No Known Problems Procedures Procedure Date Imm Admin Through 18 Yrs Of Age 018 HEP A VACC, PED/ADOL, 2 DOSE Imm Admin Through 18 Yrs Of Age 018 HPV 9 Valent Imm Admin Through 18 Yrs Of Age 018 Meningococcal Conjugate Vaccine 018 Imm Admin Through 18 Yrs Of Age 018 TDAP VACCINE >7 IM NEW OFFICE VISIT LEVEL 4 ASSAY OF LEAD (CHILD LAB) PREVENTIVE COUNSELING, INDIV MMR VACCINE, SC CHICKEN POX VACCINE, SC FLU VACCINE, 3 YRS & >, IM PREVENTIVE COUNSELING, INDIV HEP A VACC, PED/ADOL, 2 DOSE DTAP VACCINE, < 7 YRS, IM POLIOVIRUS, IPV, SC/IM CHICKEN POX VACCINE, SC FLU VACCINE, 3 YRS & >, IM H1N1 Advance Directives Directive Yes / No Effective Date File Name No Information Encounters Encounter Description Practice Location Reason(s) For Visit Diagnoses Date Provider Providers Copied on Encounter [facility], [address], [place], [id number] , [place] tel: [phone] [facility] No Information - 3 Visci DO [place]. [address], [place], [id number] , [place]. tel: [phone] [facility], [address], [place], [id number] , [place] tel: [phone] [facility] Well child (chief complaint) BMI pediatric, 5th percentile to less than 85% for ageEstablishing care with new doctor, encounter for Sep-0 5201 8 Chhaya Oneal. [address] [place] [address], [id number] , [place]. tel: [phone] NEW OFFICE VISIT LEVEL 4 [facility], [address] [place] [address], [id number] , [place] tel: [phone] [facility] hyperactivity (chief complaint) Attention deficit disorder of childhood with hyperactivityOthe r developmental speech disorder Sep-0 8-201 1 Celec DO Janine. [address], [place], [id number] , [place]. tel: [phone] PREVENTIVE COUNSELING, [facility], [address] [place] [address], [id number] , [place] tel: [phone] [facility] No Information Dec-0 6-201 0 Visci DO [place]. [address], [place], [id number] , [place]. tel: [phone] [facility], [address] [place] [address], [id number] , [place] tel: [phone] [facility] No Information Dec-0 6-201 0 Visci DO [place]. [address] [place] [address], [id number] , [place]. tel: [phone] PREVENTIVE COUNSELING, [facility], [address] [place] [address], [id number] , tel: [phone] [facility] No Information 0-201 0 Visci DO [place]. [address], [place], [id number] , . tel: [phone] [facility], [address], [place], [id number] , tel: [phone] [facility] No Information 0-201 0 Visci DO [place]. [address], [place], [id number] , [place]. tel: [phone] Family History Family Member Type Diagnosis Age At Onset Father Problem (finding) Alive and well Father Problem (finding) hypertension Paternal grandfather Problem (finding) hypertension Paternal grandmother Problem (finding) Cancer - all o nannette Father Problem (finding) Irritable bowel syndrom e Mother Problem (finding) Alive and well Immunizations Vaccine Date Status Comments MCV4 administered Source: New Imm unization Record Hep A (ped/adol, 2 dose) administered Isela rce: New Immunization Record HPV (9-valent) administered Source: New I mmunization Record Tdap administered Source: New Imm unization Record Flu (split) (3 yrs or older) administered Source: New Immunization Record Varicella administered Source: New Imm unization Record MMR administered Source: New Imm unization Record H1N1 administered Note: VIS GIVEN ; Source: New Immunization Record Hep A (ped/adol, 2 dose) administered Isela rce: New Immunization Record Flu (split) (3 yrs or older) administered Source: New Immunization Record Varicella administered Source: New Imm unization Record MMR administered Source: New Imm unization Record polio, inactive administered Source: New Immunization Record DTaP (younger than 7 yrs) administered So urce: New Immunization Record Payers Payer name Insurance type Covered constitution party ID Authoriza tion(s) [employer] Medicaid [place] [id number] Medicaid Wrap - [facility] [place] [id number] [employer] Medicaid [place] [id number] Medicaid Wrap - [facility] [place] [id number] Social History Type Description Quantity Date Captured Comments Alcohol Use Details Unknown Caffeine Use Details Unknown Tobacco Use Status No Information Smoking Status No Information Sex Male Sexual Orientation Straight or heterosexual Nov Gender Identity Male Chief Complaint And Reason For Visit No Information Reason For Referral Reason For Referral No Information Plan Of Treatment Date Type Action Status Goal Depression screening. Due on due Goal Hepatitis C screening. Due o n due Goal PRAPARE ASSESSMENT. Due on O due Goal Influenza Vaccine. Due on due Goal Tdap Vaccine. Due on 2027 due Goal Hep A. Due on du e Goal RLP. Due on due Goal Tdap due Goal Unhealthy drug use screening . Due on due Goal Hep A. Due on du e Goal RLP. Due on due Goal Influenza Vaccine. Due on due Goal Tdap due Goal Depression screening. Due on due Goal Lifestyle education regardin g diet completed Referral Ordered: Physical Therapist/Independent. Appointment date/timeframe: 07/17/2011 ordered History Of Present Illness Encounter Date Complaint History Of Prese nt Illness Well child Functional Status Date Functional Assessmen t No Information Instructions Date Instruction Additional Infor mation Age appropriate diet discussed (11-14 years) Related to Encntr for routine child health exam w/o abnormal findings Age appropriate anti cipatory guidance discussed (11-14 years) Related to Encntr for routine child health exam w/o abnormal findings Lifestyle education regarding di et Related to Body mass index (BMI) pediatric, 5th percentile to less than 85th percentile for age Giving encouragement to exercise Related to Body mass index (BMI) pediatric, 5th percentile to less than 85th percentile for age Assessments Type Assessment Date No Information Patient Care Teams Name Effective Dates (start - stop) Status Members No Information
--- OUTSIDE RECORDS SUMMARY | 2024-01-15 12:00 | XMS_ITS ---
Author Organization [facility] Address [address] [facility] [place] [address] Care Team Providers Care Deep Fat Cook Fry Name Role Phone Walter Croft Primary Care Provider [phone] Marlen Elizabeth Unavailable REASON FOR VISIT USED TO SEE LIVE PERRY WANTS TO GET BACK ON MEDS R/S FROM NS ON 12/09 Encounters Encounter Location Date Provider Diagnosis [facility] [address] [place] [address] 01/15/2024 Walter Croft Plan Of Treatment No Information Progress Notes * JOCE HYATT TDOB: [birth year] (19 yo M)Acc No.[id number]:01/15/2024 Behavioral Health Patient: JOCE DELA CRUZ Provider: ANGY Resendiz :2005 A ge:18 Y S ex:Male Date:01/15/2024 Address:[address] [facility] Subjective: * Chief Complaints: * 1 . USED TO SEE LIVE PERRY WANTS TO GET BACK ON MEDS R/S FROM NS ON 12/09. * Medical History: Objective: * Vitals: Assessment: Plan: * Treatment: * Images: * Electronic signature of ANGY Issa on 04/13/2025 at 11:25 AM EDT Sign off status: Pending * Provider: ANGY Resendiz Date: 0 01/15/2024 Generated for Printi ng/Fabeatag/eTransmitting on: 0 04/13/2025 11:25 AM EDT
--- OUTSIDE RECORDS SUMMARY | 2024-05-21 11:15 | XMS_ITS ---
Author Organization [facility] Address [address] [facility] [place] [address] Care Team Providers Care Air Tube Releaser Name Role Phone Walter Croft Primary Care Provider Surjit Marlen Leung [phone] REASON FOR VISIT bh f/u *GET NEW NUMBER* Encounters Encounter Location Date Provider Diagnosis [facility] [address] [place] [address] [place] [address] 05/21/2024 Walter Croft Plan Of Treatment No Information Progress Notes * JOCE HYATT TDOB: [birth year] (19 yo M)Acc No.[id number]:05/21/2024 Behavioral Health Patient: JOCE DELA CRUZ Provider: ANGY Resendiz :2005 A ge:18 Y S ex:Male Date:05/21/2024 Address:[address] [place], [place] [address] Subjective: * Chief Complaints: * 1 . bh f/u *GET NEW NUMBER*. * Medical History: Objective: * Vitals: Assessment: Plan: * Treatment: * Images: * Electronic signature of ANGY Issa on 04/13/2025 at 11:25 AM EDT Sign off status: Pending * Provider: ANGY Resendiz Date: 05/21/2024 Generated for Printi ng/Faxing/eTransmitting on: 04/13/2025 11:25 AM EDT
[2025-04-13 11:22] VITALS: BP 143/90; PULSE 64; TEMP 36.5; O2SAT 100; BMI 20.4
--- OUTSIDE RECORDS SUMMARY | 2025-04-13 11:26 | XMS_ITS | Patient Health Record ---
Author Organization [facility] es Address [address] [place] [address] Care Team Providers Care Manager Architectural Name Role Phone Walter Croft Primary Care Provider Marlen Elizabeth Unavailable Allergies Allergen (clinical drug ingredient) Drug/Non Drug Allergy documented on EMR Reaction Allergy Type Onset Date Status amoxicillin Amoxicillin rash Drug Allergy Act santos Reason For Referral No Information Medications Medication SIG (Take, Route, Frequency, Duration) Notes Start Date End Date Status PARoxetine HCl 10 MG 1 tablet in the mor mary anne Orally Once a day for 30 day(s) 06/07/2021 Not-Taking lamoTRIgine 25 MG take 2 tablets daily Orally daily for 30 days Active hydrOXYzine Pamoate 50 MG TAKE 1 CAPSULE BY MOUTH EVERY 6 HOURS NEEDED FOR ANXIETY FOR 30 DAYS for 30 Active Abilify 10 MG 1 tablet Orally Once a day for 30 day(s) 12/22/2021 Active Immunizations Vaccine Route Administration Date Status Comme nts DTAP Unknown 2004 Administered DTAP Unknown 03/15/2005 Administered DTAP Unknown 10/19/2005 Administered DTAP Unknown 04/13/2010 Administered Hep A peds/adol Unknown 2004 Administered Hep A peds/adol Unknown 04/13/2010 Administered Hep A peds/adol Unknown 07/09/2018 Administered Hep B Peds/Adol Unknown 2004 Administered Hep B Peds/Adol Unknown 10/19/2005 Administered Hib (ACTHIB) Unknown 2004 Administered Hib (ACTHIB) Unknown 03/15/2005 Administered Hib (ACTHIB) Unknown 10/19/2005 Administered HPV Unknown 07/09/2018 Administered HPV IM Intramuscular 02/01/2022 Administered Influenza 3+ PRIVATE Unknown 04/13/2010 Administered Influenza 3+ PRIVATE Unknown 10/09/2010 Administered Influenza 3+ PRIVATE Unknown 10/19/2010 Administered Meningococcal (MENACTRA) Unknown 07/09/2018 Administere d Meningococcal (MENACTRA) IM Intramuscular 02/01/2022 Admin istered MMR Unknown 04/13/2010 Administered MMR Unknown 10/09/2010 Administered Pneumococcal 13 Unknown 2004 Administered Pneumococcal 13 Unknown 03/15/2005 Administered Pneumococcal 13 Unknown 10/19/2005 Administered Polio, IPV Unknown 2004 Administered Polio, IPV Unknown 03/15/2005 Administered Polio, IPV Unknown 03/15/2005 Administered Polio, IPV Unknown 10/19/2005 Administered Polio, IPV Unknown 04/13/2010 Administered TDAP Unknown 07/09/2018 Administered Varicella (VARIVAX) Unknown 04/13/2010 Administered Varicella (VARIVAX) Unknown 10/09/2010 Administered Social History Tobacco Use: Social History Observation Description Date Details (start date - stop date) Never Smoker NA - NA Tobacco Screen: Question Answer Notes Are you a: never smoker Alcohol Screening: Question Answer Notes Did you have a drink containing alcohol in the p ast year? No Points 0 Interpretation Negative Problems Problem Type SNOMED Code ICD Code Onset Dates Problem Status W/U Status Risk Notes Problem 641221048 Moderate episode of recurrent major depressive disorder (F33.1) Active confirmed Problem Acute stress disorder (75573890) Acute stress disorder (F43.0) Active confirmed Problem Mixed bipolar affective disorder, moderate (962845085) Bipolar mixed affective disorder, moderate (F31.62) Active confirmed Plan Of Treatment No Information Insurance Providers Payer Name Payer Address Payer Phone Subscriber Number Group Number Insured Name Patient Relationship to Insured Coverage Start Date Coverage End Date [facility] [place] [address] [address] [place] [address] [id number] JOCE HYATT Self - patient is the insured 1 4 zMEDICAID [facility] after [facility]- termed [address] [place] [address] [id number] JOCE HYATT Self - patient is the insured 1 4 [employer] [address] [place] [address] [id number] JOCE HYATT Self - patient is the insured 1 1 z [facility]-termed [address] [address] [place] [address] [id number] JOCE HYATT Self - patient is the insured 1 4 [facility] MEDICAID [facility] after [facility]te rmed [address] [place] [address] [id number] JOCE HYATT Self - patient is the insured 1 4 [employer] [facility]-te rmed [address] [address] [place] [address] [id number] JOCE HYATT Self - patient is the insured 2 4 [facility] MEDICAID C[employer] after [facility] [address] [place] [address] [id number] JOCE HYATT Self - patient is the insured 2 4 [facility] [employer] [place] Medicaid [address] [place] [address] [id number] FLORESROBERT Parent 3 [employer] [address] [place] [phone] [id number] MARK ROBERT Parent 3 Medical (General) History Medical History History ICD Code depression Hospitalization History Reason Date(Month/Year) psychiatric(Cash) 02/2021
[2025-04-13] MEDS: ONDANSETRON 4 MG RAPDIS TABLET SL (11:41)
[2025-04-13] MEDS: NAPROXEN 250 MG TABLET PO (11:53)
--- NOTE | 2025-04-13 12:19 | ED.GENADUL1 ---
HPI HPI - General Adult General Chief complaint: Headache Stated complaint: MIGRAINE Time Seen by Provider: 04/13/25 11:28 Source: patient Mode of arrival: walk-in Limitations: no limitations History of Present Illness HPI narrative: The patient is coming to the ER with 2 days history of a headache that mostly frontal, preceded by 1 episode of diarrhea as well as vomiting few days ago, also has been having some runny nose and congestion The patient denies any other concerns. He has no previous history of migraine No photosensitivity no blurry vision no other concerns Related Data Allergies Allergy/AdvReac Type Severity Reaction Status Date / Time amoxicillin Allergy Unknown Unknown Verified 04/13/25 11:22 Review of Systems ROS Status of ROS 10 or more systems reviewed and unremarkable except as noted in history and below PFSH [facility] Social History Little interest or pleasure in doing things: not at all Feeling down, depressed, or hopeless: not at all Exam Narrative Exam Narrative: Nurses notes and vital signs reviewed and patient is not hypoxic. General: Well-appearing and in no apparent distress. Skin: Warm, dry, no pallor noted. No rash. Head: Normocephalic, atraumatic. Neck: Supple, non-tender. Cardiovascular: Regular Rate and Rhythm without murmur, gallop or rub. Respiratory: No accessory muscle use or respiratory distress. Lungs are clear to auscultation, no wheezing, rales or rhonchi Chest Wall: no tenderness Back: No midline thoracic or lumbar vertebral tenderness. No CVA tenderness Musculoskeletal: normal ROM, no calf or popliteal tenderness, no lower extremity edema/swelling GI: Abdomen is soft, non-distended. Normal bowel sounds. No masses appreciated. No tenderness to palpation. No rebound, guarding, or rigidity noted. Neurological: A&O x4. No cranial nerve dysfunction observed. No truncal ataxia. Moves all extremities. Sensation intact. Psychiatric: Cooperative and interactive. Normal mood and affect. Constitutional Vital Signs, click to edit/add: Last Vital Signs Temp 97.7 F 04/13/25 11:22 Pulse 64 04/13/25 11:22 Resp 18 04/13/25 11:22 BP 143/90 H 04/13/25 11:22 Pulse Ox 100 04/13/25 11:22 O2 Del Method Room Air 04/13/25 11:22 Course Vital Signs Vital signs: Vital Signs Temperature 97.7 F 04/13/25 11:22 Pulse Rate 64 04/13/25 11:22 Respiratory Rate 18 04/13/25 11:22 Blood Pressure 143/90 H 04/13/25 11:22 Pulse Oximetry 100 04/13/25 11:22 Oxygen Delivery Method Room Air 04/13/25 11:22 Temperature 97.7 F 04/13/25 11:22 Pulse Rate 64 04/13/25 11:22 Respiratory Rate 18 04/13/25 11:22 Blood Pressure 143/90 H 04/13/25 11:22 Pulse Oximetry 100 04/13/25 11:22 Oxygen Delivery Method Room Air 04/13/25 11:22 Medical Decision Making MDM Narrative Medical decision making narrative: The patient's headaches mostly secondary to viral illness He initially was ordered Toradol but he did not want any injection and that he mostly needed a work excuse because he had to leave work The patient to hydrate himself well at home he was provided naproxen here in the ER as well as Zofran The patient is to follow up with primary care physician in next 2-3 days or to return to the emergency department should any of the signs or symptoms worsen or new symptoms develop. The patient agrees with the following Diagnosis and Treatment plan and the patient will be discharged home. Discharge Plan Discharge Chief Complaint: Headache Clinical Impression: Tension headache, Acute viral syndrome Patient Disposition: Home, Self-Care Time of Disposition Decision: 11:34 Condition: Good Mode of Transportation: Private Vehicle Print Language: Yakut Instructions: Tension Headache (ED), Viral Syndrome (ED) Referrals: Physician,Non-Staff, [Primary Care Provider] - 1 week Discharge Date/Time: 04/13/25 11:56
== END 2025-04-13 11:56 | disposition home or self-care (01) ==
PROVIDERS: Emergency Provider Emergency Medicine
DX: G44.209 Tension-type headache, unspecified, not intractable (principal); B34.9 Viral infection, unspecified
CPT/HCPCS: 99284; Q0162

== ENCOUNTER 2025-08-18 18:28 | Emergency (ER) | payer SELFPAY ==
[2025-08-18 18:41] VITALS: BP 140/86; PULSE 80; TEMP 37.2; O2SAT 100; BMI 21.1
--- OUTSIDE RECORDS SUMMARY | 2025-08-18 18:57 | XMS_ITS | CCD ---
Author Organization [employer] [facility] Care Team Providers Care Swing Ride Operator Name Role Phone REQUEST, DR NONE LISTED Primary Care UnavailMY Gonsalves Consulting Unavailable CHRISTIANO RODRIGUEZ Admitting Unavailable CHRISTIANO RODRIGUEZ Attending Unavailable [facility] DR SALDANA Primary Care Unavailable EMELY PAL Consulting Unavailable EMELY PAL Attending Unavailable EMELY PAL Admitting Unavailable NO FAMILY, PHYSICIAN Primary Care Provider Unava ilable Felipe Monroe DO Emergency Provider [phone] Nick Downey Attending Unavailable Nick Downey Admitting Unavailable NO FAMILY, PHYSICIAN Primary Care Unavailable Felipe Monroe Admitting Unavailable NO FAMILY, PHYSICIAN Primary Care Unavailable Felipe Monroe Attending Unavailable NO FAMILY, PHYSICIAN Primary Care Provider Unava ilable Nick Downey DO Emergency Provider Allergies Allergy Classification Reported Allergen(s) Allergy Type Date of Onset Reaction(s) Facility (1 source) Amoxicillin Drug Allergy 09-28-[address] [facility] Repository (1 source) Amoxicillin Drug Allergy 08-16-2025 [facility] Repository Medications Current Medications Medication Drug Class(es) Dates Sig (Normalized) Sig (Original) [place] (No Known Home Meds) (2 sources) Start: 01-26-2025 [place] (No Known Home Meds) Active January 26, 2025 12:00am Completed/Discontinued Medications Medication Drug Class(es) Dates Sig (Normalized) Sig (Original) dextromethorphan hydrobromide 15 mg / guaiFENesin 400 mg / pseudoephedrine hydrochloride 60 mg oral tablet (3 sources) alpha-Adrenergic Agonist, Uncompetitive D-snvvdk-Q-aspartat e Receptor Antagonist, Sigma-1 Agonist Start: 08-22-2024 End: 01-26-2025 take 4 tablets by mouth every twenty-four hours as needed Pseudoephedrine-D m-Guaifenesin (Capmist Dm) 60-15-400 mg tablet Discontinued 1 TAB PO EVERY 4-6 HOURS as needed for cold symptoms August 22, 2024 12:00am January 26, 2025 10:39pm do not exceed 4 doses per 24 hrs Problems Active Problems Problem Classification Problem Date Documented Da te Episodic/Chronic Headache; including migraine (4 sources) Headache; including migraine; Translations: [HEADACHE UNSPECIFIED] Onset: 10-05-2021 Mood disorders (3 sources) Depressive disorder; Translations: [Depression] 10-16-2023 Chronic Comment on above: Problem List clean-u p per request of Phys. EHR Cmte Other and unspecified benign neoplasm (1 source) Lipoma (clinical); Translations: [Benign lipomatous neoplasm, unspecified] 08-16-2025 Episodic Poisoning by other medications and drugs (3 sources) Poisoning by unspecified drugs, medicaments and biological substances, accidental (unintentional), initial encounter; Translations: [Drug overdose] 10-16-2023 Episodic Comment on above: Problem List clean-u p per request of Phys. EHR Cmte Substance-related disorders (3 sources) Cannabis abuse; Translations: [Cannabis abuse, uncomplicated] 10-16-2023 Chronic Comment on above: Problem List clean-u p per request of Phys. EHR Cmte Suicide and intentional self-inflicted injury (3 sources) Suicidal thoughts; Translations: [Suicidal ideations] 10-16-2023 Episodic Comment on above: Problem List clean-u p per request of Phys. EHR Cmte Unclassified (1 source) COUGH, UNSPECIFIED; Translations: [COUGH, UNSPECIFIED] Onset: 10-09-2021 Unclassified (1 source) CONTACT W/AND (SUSP) EXPOS COVID-19; Translations: [CONTACT W/AND (SUSP) EXPOS COVID-19] Onset: 07-28-2021 Viral infection (1 source) COVID-19; Translations: [COVID-19] Onset: 10-09-2021 Past or Other Problems Problem Classification Problem Date Documented Da te Episodic/Chronic Other upper respiratory infections (9 sources) Acute upper respiratory infection, unspecified; Translations: [Acute pharyngitis, unspecified] Onset: 07-26-2021 Episodic Results Test Name Value Interpretation Reference Range Facility COVID Cepheid NegativeOrdere d By: PROVIDER TEMP on 01-26-2025 SARS-CoV-2 (COVID-19) Ab IA Ql COVID Cepheid Negative [facility] Comment on above: This is a duplicate Cepheid Xpert Xpress CoV-2/Flu/RSV Plus RNA by RT-PCR result to be used for statistical tracking purpose only. COVID-19 / Flu A/B / RSV PCR on 01-26-2025 SARS-CoV-2 (COVID-19) RNA FEDERICO+probe Ql (Unsp spec) COVID-19 Cepheid Result Negative for SARS-CoV-2 RNA by RT-PCR Flu A Cepheid Result Negative for Flu A RNA by RT-PCR Flu B Cepheid Result Negative for Flu B RNA by RT-PCR RSV Cepheid Result Negative for RSV RNA by RT-PCR COVID19 Blank Space Reference: Negative COVID19 Blank Space Cepheid Disclaimer The Cepheid Xpert Xpress CoV-2/Flu/RSV Plus has Cepheid Disclaimer not been FDA cleared or approved; this test has Cepheid Disclaimer been authorized by FDA under an EUA for use by Cepheid Disclaimer authorized laboratories; this test has been Cepheid Disclaimer authorized only for the simultaneous qualitative Cepheid Disclaimer detection and differentiation of nucleic acids from Cepheid Disclaimer SARS-CoV-2, influenza A, influenza B, and Cepheid Disclaimer respiratory syncytial virus (RSV), and not for any Cepheid Disclaimer other viruses or pathogens; and this test is only Cepheid Disclaimer authorized for the duration of the declaration that Cepheid Disclaimer circumstances exist justifying the authorization of Cepheid Disclaimer emergency use of in vitro diagnostic tests for Cepheid Disclaimer detection and/or diagnosis of COVID-19 under Cepheid Disclaimer Section 564(b)(1) of the Act, 21 U.S.C. 360bbb- Cepheid Disclaimer 3(b)(1), unless the authorization is terminated or Cepheid Disclaimer revoked sooner. PERFORMED BY: [place] [address] PATHOLOGIST CHROME TANNER CHARLEY CARR M.D. Normal [facility] Comment on above: Performed By: #### Q S, COVID19 FLU RSV, RFXSTPA, CEPHEID NEG #### [place] [id number] [facility] Cepheid COVID PCR Negativeon 01-26-2025 SARS-CoV-2 (COVID-19) RNA FEDERICO+probe Ql (Unsp spec) Negative Normal Negative [facility] Comment on above: Result Comment: This is a duplicate Cepheid Xpert Xpress CoV-2/Flu/RSV Plus RNA by RT-PCR result to be used for statistical tracking purpose only. PERFORMED BY: [place] [id number] PATHOLOGIST CHROME TANNER CHARLEY CARR M.D. Performed By: #### Q S, COVID19 FLU RSV, RFXSTPA, CEPHEID NEG #### [place] [id number] [facility] Quick Strepon 01-26-2025 Quick Strep Streptococcus pyogenes Ag [Presence] in Throat by Rapid immunoassay Negative for Group A Strep Antigen Note 1 -- NOTE 2 Results are those of a screening test. NOTE 3 If clinically indicated please order a culture. NOTE 4 -- NOTE 5 Reference range = Negative PERFORMED BY: [place] [address] PATHOLOGIST CHROME TANNER CHARLEY CARR M.D. Normal [facility] Comment on above: Performed By: #### Q S, COVID19 FLU RSV, RFXSTPA, CEPHEID NEG #### [address] RFX Strep A Reflex Cult Only on 01-26-2025 RFX Strep A Reflex Cult Only No Group A Beta Streptococcus Isolated 2 Days PERFORMED BY: [place] [address] PATHOLOGIST CHROME TANNER CHARLEY CARR M.D. Normal [facility] Comment on above: Performed By: #### Q S, COVID19 FLU RSV, RFXSTPA, CEPHEID NEG #### [address] Respiratory specimen influen za A virus, influenza B virus, respiratory syncytical virOrdered By: Felipe Monroe on 01-26-2025 SARS-CoV-2 (COVID-19) RNA FEDERICO+probe Ql (Unsp spec) Respiratory specimen influenza A virus, influenza B virus, respiratory syncytical vir [facility] Streptococcus pyogenes antig en detectionOrdered By: Felipe Monroe on 01-26-2025 S. pyogenes Ag Ql (Unsp spec) Streptococcus pyogenes antigen detection [facility] No Panel InformationOrdered By: Marilyn Zuñiga on 08-22-2024 Quick Strep (POC) [facility] CULTURE THROATon 10-05-2021 CULTURE THROAT Culture Observations: NORMAL RESPIRATORY CRISTIANE. Normal [facility] Comment on above: Performed By: #### S SCRN, THRTCX #### [facility] [address] [address] [address] Yakov Church Covid-19 PCR (CVDTBH)on SARS-CoV-2 (COVID-19) RNA FEDERICO+probe Ql (Unsp spec) Detected Critically abnormal NOT DETECTED [facility] Comment on above: Result Comment: This test is not yet approved or cleared by the [place] Food and Drug Administration (FDA). This test was developed by [employer], [place], [place]. The performance characteristics of this test were validated by [facility]. The results are not intended to be used as the sole means for clinical diagnosis or patient management decisions. [facility] is authorized under Clinical Laboratory Improvement Amendments [...] for this test is supported by the [place] of Health and Human Service's declaration that [...] used). Performed By: #### C VDTBH #### [facility] [address] [address] [address] Yakov Church STREPT SCREENon 10-05-2021 STREP SCREEN A Negative Normal NEGATIVE [facility] Comment on above: Performed By: #### S SCRN, THRTCX #### [facility] [address] [address] [address] Yakov Church CULTURE THROATon 07-26-2021 CULTURE THROAT Culture Observations: NORMAL RESPIRATORY CRISTIANE. Normal [facility] Comment on above: Performed By: #### T HRTCX, SSCRN #### [facility] [address] [address] [address] Yakov Church Covid-19 PCR ([facility])on 07-06 SARS-CoV-2 (COVID-19) RNA FEDERICO+probe Ql (Unsp spec) Not detected Normal NOT DETECTED [facility] Comment on above: Result Comment: This test is not yet approved or cleared by the [place] FDA. When there are no FDA-approved or cleared tests available, and other criteria are met, FDA can make tests available under an emergency access mechanism called an Emergency Use Authorization (EUA). The EUA for this test is supported by the [place] of Health and Human Service's (HHS's) declaration [...] SARS-CoV-2. Performed By: #### C VDTBH #### [facility] [address] [place] [address] Dr. Yakov Church STREPT SCREENon 07-26-2021 STREP SCREEN A Negative Normal NEGATIVE [facility] Comment on above: Performed By: #### T HRTCX, SSCRN #### [facility] [address] [place] [address] Dr. Yakov Church SYMPTOMATIC COVID-19 ANTIGEN on 07-26-2021 EUA Statement SEE BELOW Normal [facility] Comment on above: Result Comment: This [...] sooner. Performed By: #### C VDAGS #### [facility] [address] [place] [address] Dr. Yakov Church SARS-CoV-2 (COVID-19) RNA FEDERICO+probe Ql (Unsp spec) Negative Normal NEGATIVE [facility] Comment on above: Result Comment: CONF IRMATION BY PCR PENDING PER CDC GUIDELINES/ SYMPTOMATIC PATIENT. Performed By: #### C VDAGS #### [facility] [address] [address] [address] Yakov Church Vital Signs Date Time Vital Sign Value Performing Clinician Susani litoumar 08-16-2025 07:25-0400 Body height 170.18 cm PHYSICIAN NO [facility] 08-16-2025 07:25-0400 Body temperature 98.1 [degF] PHYSICIAN NO [facility] 08-16-2025 07:25-0400 Body weight 63.5 kg PHYSICIAN NO [facility] 08-16-2025 07:25-0400 Diastolic blood pressure 66 mm[Hg] PHYSICIAN NO [facility] 08-16-2025 07:25-0400 Heart rate 75 /min PHYSICIAN NO [facility] 08-16-2025 07:25-0400 Respiratory rate 20 /min PHYSICIAN NO [facility] 08-16-2025 07:25-0400 SaO2% (BldA) [Mass fraction] 99 % PHYSICIAN NO [facility] 08-16-2025 07:25-0400 Systolic blood pressure 128 mm[Hg] PHYSICIAN NO [facility] 01-26-2025 22:40-0400 Body height 170.18 cm PHYSICIAN NO [facility] 01-26-2025 22:40-0400 Body temperature 99.2 [degF] PHYSICIAN NO [facility] 01-26-2025 22:40-0400 Body weight 58.15 kg PHYSICIAN NO [facility] 01-26-2025 22:40-0400 Diastolic blood pressure 61 mm[Hg] PHYSICIAN NO [facility] 01-26-2025 22:40-0400 Heart rate 70 /min PHYSICIAN NO [facility] 01-26-2025 22:40-0400 Respiratory rate 18 /min PHYSICIAN NO [facility] 01-26-2025 22:40-0400 SaO2% (BldA) [Mass fraction] 99 % PHYSICIAN NO [facility] 01-26-2025 22:40-0400 Systolic blood pressure 131 mm[Hg] PHYSICIAN NO [facility] 08-22-2024 14:31-0400 Body height 170.18 cm [facility] 08-22-2024 14:31-0400 Body mass index (BMI) [Percentile] Per age and sex 21.4 % [facility] 08-22-2024 14:31-0400 Body mass index (BMI) [Ratio] 20.8 kg/m2 [facility] 08-22-2024 14:31-0400 Body temperature 99.9 [degF] [facility] 08-22-2024 14:31-0400 Body weight 60.32 kg [facility] 08-22-2024 14:31-0400 Diastolic blood pressure 70 mm[Hg] [facility] 08-22-2024 14:31-0400 Heart rate 67 /min [facility] 08-22-2024 14:31-0400 Respiratory rate 18 /min [facility] 08-22-2024 14:31-0400 SaO2% (BldA) [Mass fraction] 98 % [facility] 08-22-2024 14:31-0400 Systolic blood pressure 119 mm[Hg] [facility] Encounters Encounter Date Encounter Type Care Provider Facility Start: 08-16-2025 End: 08-16-2025 Emergency department patient visit Nick Downey Facility:[facility] Start: 01-26-2025 End: 01-27-2025 Emergency department patient visit PHYSICIAN NO [facility] Work Phone: Start: 08-22-2024 End: 08-22-2024 ambulatory [facility] Work Phone: Start: 08-22-2024 End: 08-22-2024 Patient encounter procedure [facility] Work Phone: Start: 10-05-2021 End: 10-05-2021 ambulatory NONE LISTED REQUEST Facility:[facility] Start: 07-26-2021 End: 07-26-[address] DOCTOR PEREZ Facility:[facility] Procedures Date Procedure Procedure Detail Performing Clinician Start: 01-26-2025 Streptococcus pyogen es antigen assay PHYSICIAN NO FAMILY Start: 01-26-2025 Viral nucleic acid assay PHYSICIAN NO FAMILY Start: 08-22-2024 Quick Strep (POC) Plan of Treatment Date Care Activity Detail Author Start: 01-26-2025 Streptococcus pyogen es Ag [Presence] in Throat Group A Strep Throat Culture [facility] Patient Education [place] [facility] Work Phone: Patient referral [facility] Work Phone: [facility] Payers Date Payer Category Payer Self-pay [id number] 1986 Unknown [id number] 1986 Unknown [id number] 1959 Unknown [id number] Unknown [facility] [id number] Unknown [id number] [id number] Unknown [id number] Social History Date Type Detail Facility Start: 02-27-2021 End: 08-16-2025 Tobacco smoking status NHIS Never smoked tobacco (finding) [facility] Start: 2005 Sex Assigned At Male F [facility] Start: 01-27-2025 Sex Male (finding) [facility] Evaluation note Note Date & Type Note Facility Evaluation note No assessment information availa ble [facility] Work Phone: Hospital Discharge instructions Note Date & Type Note Facility Hospital Discharge instructions Additional Instructions It is recommended to follow-up with Dr. Martinez with general surgery if this area gets bigger or more painful [facility] Work Phone: Reason for referral (narrative) Note Date & Type Note Facility Reason for referral (narrative) No reason for referral information available [facility] Work Phone: Summary Purpose Family History No Family History Records FoundNo Family History Records Found Advance Directives Advance Directive Response Recorded Date/ Time Advance Directives No September 9:16am Chief Complaint and Reason for Visit Chief Complaint Sore throat Chief Complaint Admit Date bilat ear pain,headache,sore throat Sunil h 2024 10:11pm Chief Complaint Admit Date bump on leg August 16, 2025 7 :21am Additional Source Comments (unrecognized sect ion and content) No Status Records FoundNo Status Records Found INFORMATION SOURCE (unrecogn ized section and content) DATE CREATED AUTHOR 10/09/2021 [facility] DATE CREATED AUTHOR AUTHOR'S ORGANIZ ATION 08/16/2025 [facility] Care Teams (unrecognized sec tion and content) Team Status: Active Member Role Status Dates PHYSICIAN NO FAMILY Primary Care Provider Active Team Status: Inactive Member Role Status Dates PHYSICIAN NO FAMILY Primary Care Provider Active Start: August 22, 2024 End: August 22, 2024 Marilyn Zuñiga APRN Attending Provider Active Start: August 22, 2024 End: August 22, 2024 Team Status: Inactive Member Role Status Dates PHYSICIAN NO FAMILY Primary Care Provider Active Start: January 26, 2025 End: January 27, 2025 Felipe Monroe DO Emergency Provider Active St art: January 26, 2025 End: January 27, 2025 Team Status: Inactive Member Role Status Dates PHYSICIAN NO FAMILY Primary Care Provider Active Start: August 16, 2025 End: August 16, 2025 Nick Downey DO Emergency Provider Active Star t: August 16, 2025 End: August 16, 2025 Goals (unrecognized section and content) Goals may be documented in a n alternate sectionGoals may be documented in an alternate sectionGoals may be documented in an alternate section FOR RECORDS PERTAINING TO PATIENTS [...] BE BASED ON THE PRIMARY CLINICAL RECORDS. [facility]. provides no warranty or guarantee of the accuracy or completeness of information in this document.
--- NOTE | 2025-08-18 19:17 | ED.EXTPRO1 ---
HPI - Extremity Problem General Chief complaint: Extremity Problem, Nontraumatic Stated complaint: BUMP ON BACK OF LEFT THIGH Time Seen by Provider: 08/18/25 19:06 Source: patient and friend Mode of arrival: walk-in Limitations: no limitations History of Present Illness HPI Narrative: cc - painful lump behind the left thigh One week ago the patient noticed a painful area in the mid left hamstring. He does not recall an injury. He injected some testosterone into the buttock - but nowhere near the area of current complaint. No systemic symptoms such as fever or vomiting. No redness, bruising or swelling to the area. He apparently was evaluated at [facility] ED two days ago, diagnosed with lipoma and referred to a local surgeon for follow up in case it needs excision. He has not called for follow up Related Data Home Medications ?Medication ?Instructions ?Recorded ?Confirmed No Known Home Medications 08/18/25 08/18/25 Allergies Allergy/AdvReac Type Severity Reaction Status Date / Time amoxicillin Allergy Unknown Unknown Verified 08/18/25 18:41 PFSH [facility] Social History Little interest or pleasure in doing things: not at all Feeling down, depressed, or hopeless: not at all Exam Narrative Exam Narrative: Nurses notes and vital signs reviewed and patient is not hypoxic. afebrile General: Well-appearing and in no apparent distress. Skin: Warm, dry, no pallor noted. No rash. Eye: Pupils are equal, round and EOMI. No scleral icterus. Ears, Nose, Mouth, and Throat: Oral mucosa is moist Cardiovascular: Normal peripheral perfusion. Respiratory: No accessory muscle use or respiratory distress. Musculoskeletal: Palpable 1 cm diameter lipoma noted in the mid left thigh posteriorly. Both legs with normal ROM, no calf or popliteal tenderness, no lower extremity edema/swelling Neurological: A&O x4. No cranial nerve dysfunction observed. No truncal ataxia. Moves all extremities. Sensation intact. Psychiatric: Cooperative and interactive. Normal mood and affect. Constitutional Vital Signs, click to edit/add: Last Vital Signs Temp 98.9 F 08/18/25 18:41 Pulse 80 08/18/25 18:41 Resp 18 08/18/25 18:41 BP 140/86 08/18/25 18:41 Pulse Ox 100 08/18/25 18:41 O2 Del Method Room Air 08/18/25 18:41 Course Vital Signs Vital signs: Vital Signs Temperature 98.9 F 08/18/25 18:41 Pulse Rate 80 08/18/25 18:41 Respiratory Rate 18 08/18/25 18:41 Blood Pressure 140/86 08/18/25 18:41 Pulse Oximetry 100 08/18/25 18:41 Oxygen Delivery Method Room Air 08/18/25 18:41 Temperature 98.9 F 08/18/25 18:41 Pulse Rate 80 08/18/25 18:41 Respiratory Rate 18 08/18/25 18:41 Blood Pressure 140/86 08/18/25 18:41 Pulse Oximetry 100 08/18/25 18:41 Oxygen Delivery Method Room Air 08/18/25 18:41 MDM - Extremity (Nontraumatic) MDM Narrative Medical decision making narrative: The patient presents with a painful lump in the left hamstring area that developed about a week ago. His exam is consistent with a lipoma in this area. He already has been evaluated at [facility] emergency department and referred to general surgeon for reevaluation and possible excision. I told him to call that surgeon for follow-up and let him know that we did not excise those in the emergency department. He also requested a work excuse for tomorrow so I gave him 1 day off. Discharge Plan Discharge Chief Complaint: Extremity Problem, Nontraumatic Clinical Impression: Lipoma of left thigh Patient Disposition: Home, Self-Care Time of Disposition Decision: 19:21 Prescriptions / Home Meds: No Action No Known Home Medications Print Language: Faroese Instructions: [place] (ED) Referrals: Physician,Non-Staff, MD [Primary Care Provider] - 1 week
== END 2025-08-18 19:26 | disposition home or self-care (01) ==
PROVIDERS: Emergency Provider Emergency Medicine
DX: D17.24 Benign lipomatous neoplasm of skin and subcutaneous tissue of left leg (principal)
CPT/HCPCS: 99281